=== PATIENT | male | born 1970 | race Caucasian/White ===

== ENCOUNTER 2018-09-13 16:31 | Emergency (ER) | payer SELFPAY | END 2018-09-13 16:53 | disposition home or self-care (01) | LOC: MADERS 16:31 | DX: S33.5XXA Sprain of ligaments of lumbar spine, initial encounter (principal); X50.1XXA Overexertion from prolonged static or awkward postures, initial encounter | CPT/HCPCS: 99281 ==

== ENCOUNTER 2020-12-04 13:29 | Emergency (ER) | payer SELFPAY | END 2020-12-04 14:10 | disposition home or self-care (01) | LOC: MADERS 13:29 | DX: R50.9 Fever, unspecified (principal); R05 Cough; Z20.822 Contact with and (suspected) exposure to COVID-19 | CPT/HCPCS: 71045 ==